=== PATIENT | female | born 1970 | race Caucasian/White ===

== ENCOUNTER 2024-01-24 17:32 | Emergency (ER) | payer SELFPAY ==
[~2024-01-24] VITALS: Ht 162.6 cm; Wt 80.0 kg
[2024-01-24 17:36] VITALS: O2SAT 96
[2024-01-24] MEDS: HYDROCODONE/ACETAMINOPHEN 5/325MG TABLET PO ONE (18:27)
[2024-01-24] MEDS: KETOROLAC 30MG/ML VIAL IM ONE (18:28)
[2024-01-24] MEDS: LIDOCAINE 5% PATCH TOP SCH (18:29)
[2024-01-24] MEDS: ACETAMINOPHEN 325MG TABLET PO ONE (18:35)
[2024-01-24 19:13] LABS: BASOPHILS % 0.3 % (0.0-2.0); EOSINOPHILS % 1.6 % (0.0-5.0); HEMATOCRIT. 41.4 % (36.0-48.0); HEMOGLOBIN. 13.5 g/dL (12.0-16.0); LYMPHOCYTES % 27.7 % (20.0-50.0); MEAN CORPUSCULAR HEMOGLOBIN 26.9 pg (28.0-32.0); MEAN CORPUSCULAR HGB CONC 32.5 g/dL (31.0-37.0); MEAN CORPUSCULAR VOLUME 82.8 fL (81.0-99.0); MEAN PLATELET VOLUME 9.2 fl (7.4-10.4); MONOCYTES % 5.6 % (2.0-8.0); NEUTROPHILS % 64.8 % (40.0-76.0); PLATELET 245 x1000/uL (130-400); RED CELL DISTRIBUTION WIDTH 13.5 % (11.6-14.6); WHITE BLOOD COUNT 10.8 x1000/uL (4.5-11.0)
[2024-01-24 19:21] LABS: CHLORIDE 108 mEq/L (98-107); POTASSIUM 4.1 mEq/L (3.5-5.1); SODIUM 140 mEq/L (136-145)
[2024-01-24 19:22] LABS: CALCIUM 9.4 mg/dL (8.7-10.4); CARBON DIOXIDE 25 mEq/L (21-32)
[2024-01-24 19:27] LABS: CREATININE 0.8 mg/dL (0.6-1.0); GLUCOSE 110 mg/dL (70-105); UREA NITROGEN BLOOD 22 mg/dL (9-23)
[2024-01-24 19:29] LABS: ALANINE AMINOTRANSFERASE 27 IU/L (10-49); ALBUMIN 4.4 g/dL (3.2-4.8); ASPARTATE AMINOTRANSFERASE 28 IU/L (<34); BILIRUBIN TOTAL 0.3 mg/dL (0.1-1.0); PROTEIN TOTAL 7.5 g/dL (6.0-8.3)
[2024-01-24 19:40] LABS: HCG SCREEN NEGATIVE
[2024-01-24 21:52] VITALS: BP 121/68; PULSE 82; RESP 21; TEMP 37.05852; O2SAT 98
== END 2024-01-24 23:32 | disposition short-term general hospital (02) ==
LOC: ER 17:32
DX: S22.081A Stable burst fracture of T11-T12 vertebra, initial encounter for closed fracture (principal); M54.2 Cervicalgia; V29.91XA Electric (assisted) bicycle rider (driver) (passenger) injured in unspecified traffic accident, initial encounter; Y93.55 Activity, bike riding; Y92.89 Other specified places as the place of occurrence of the external cause; Y99.9 Unspecified external cause status
CPT/HCPCS: 80053; 84703; 83690; 85025; 36415; 70450; 71260; 72125; 72128; 72131; 74177; 96372; 99285; J1885; Z7610